=== PATIENT | male | born 1960 | race Caucasian/White ===

== ENCOUNTER 2024-06-20 06:18 | Day surgery (SDC) | payer OTHER, SELFPAY | END 2024-06-20 08:56 | disposition home or self-care (01) | LOC: GI 06:18 | PROVIDERS: ATTENDING PHYSICIAN Internal Medicine Gastroenterology | DX: Z12.11 Encounter for screening for malignant neoplasm of colon (principal); K57.30 Diverticulosis of large intestine without perforation or abscess without bleeding; K64.0 First degree hemorrhoids; R19.7 Diarrhea, unspecified; K63.9 Disease of intestine, unspecified; D72.19 Other eosinophilia; Z86.0100 Personal history of colon polyps, unspecified | CPT/HCPCS: 45380; 88305; 88312 ==